=== PATIENT | male | born 1945 | race Caucasian/White ===

== ENCOUNTER 2020-12-21 15:06 | Emergency (ER) | payer MEDICARE, OTHER ==
[~2020-12-21] VITALS: Ht 175.3 cm; Wt 95.3 kg
[2020-12-21 15:15] VITALS: BP 133/81
[2020-12-21 15:48] LABS: BASOPHILS % (AUTO) 0.5 % (0.0-5.0); HEMATOCRIT 46.6 % (42-54); LYMPHOCYTES % (AUTO) 7.6 % (21.0-51.0); MEAN CORPUSCULAR HEMOGLOBIN 30.8 pg (27.0-33.0); MEAN CORPUSCULAR HGB CONC 33.3 g/dL (32.0-36.0); MEAN CORPUSCULAR VOLUME 92.5 fL (79-99); MONOCYTES % (AUTO) 7.9 % (3.0-13.0); NEUTROPHILS % (AUTO) 82.4 % (40.0-77.0); PLATELET COUNT (AUTO) 114 K/uL (130-400); RED BLOOD CELL COUNT(AUTO) 5.04 MIL/uL (4.50-6.20); RED CELL DISTRIBUTION WIDTH 13.8 % (11.0-15.5); WHITE BLOOD COUNT (AUTO) 10.8 K/uL (4.8-10.8)
[2020-12-21 16:00] LABS: CREATININE 1.4 mg/dL (0.5-1.5); POTASSIUM 3.5 mmol/L (3.5-5.1)
[2020-12-21 16:22] VITALS: BP 127/78
== END 2020-12-21 16:53 | disposition home or self-care (01) ==
LOC: EDH 15:06
DX: E86.9 Volume depletion, unspecified (principal); R55 Syncope and collapse; J45.909 Unspecified asthma, uncomplicated; Z88.6 Allergy status to analgesic agent
CPT/HCPCS: 36415; 80048; 84484; 85025; 93005

== ENCOUNTER → 2023-08-23 | Outpatient (CLI) | payer MEDICARE, OTHER | LOC: SHCH 13:35 | PROVIDERS: ATTEND Internal Medicine Cardiovascular Disease | DX: I10 Essential (primary) hypertension (principal); R01.1 Cardiac murmur, unspecified | CPT/HCPCS: 93306 ==

== ENCOUNTER 2023-12-05 14:00 | Inpatient (IN) | payer MEDICARE, OTHER ==
[~2023-12-05] VITALS: Ht 175.3 cm; Wt 91.8 kg
[2023-12-05 15:40] LABS: BASOPHILS # (AUTO) 0.04 K/uL (0.00-0.20); BASOPHILS % (AUTO) 0.5 % (0.0-5.0); EOSINOPHILS # (AUTO) 0.19 K/uL (0.00-0.70); EOSINOPHILS % (AUTO) 2.4 % (0.0-8.0); HEMATOCRIT 44.3 % (42-54); IMMATURE GRANULOCYTE ABSOLUTE 0.06 K/uL (0-1); LYMPHOCYTES # (AUTO) 1.5 K/uL (1.0-4.8); LYMPHOCYTES % (AUTO) 18.6 % (21.0-51.0); MEAN CORPUSCULAR HEMOGLOBIN 30.9 pg (27.0-33.0); MEAN CORPUSCULAR VOLUME 93.7 fL (79-99); MONOCYTES # (AUTO) 0.7 K/uL (0.1-1.0); MONOCYTES % (AUTO) 8.8 % (3.0-13.0); NEUTROPHILS # (AUTO) 5.5 K/uL (1.8-7.7); NEUTROPHILS % (AUTO) 68.9 % (40.0-77.0); PLATELET COUNT (AUTO) 156 K/uL (130-400); RED BLOOD CELL COUNT(AUTO) 4.73 MIL/uL (4.50-6.20)
[2023-12-05 15:47] LABS: APPEARANCE,URINE CLEAR (CLEAR); BILIRUBIN,URINE NEGATIVE (NEGATIVE); COLOR,URINE LIGHT-YELLOW (YELLOW); GLUCOSE, URINE (UA) 50 mg/dL (NEGATIVE); KETONES,URINE NEGATIVE (NEGATIVE); LEUKOCYTE ESTERASE ,URINE NEGATIVE Leu/uL (NEGATIVE); NITRATE,URINE NEGATIVE (NEGATIVE); OCCULT BLOOD,URINE NEGATIVE (NEGATIVE); PH,URINE 6.5 (5.0-8.0); PROTEIN,URINE NEGATIVE (NEGATIVE); UROBILINOGEN,URINE 0.2 mg/dL (0.2-1.0)
[2023-12-05 15:48] LABS: ADD UA MICROSCOPIC YES
[2023-12-05 15:49] LABS: MUCUS,URINE RARE LPF (None Seen); RBC,URINE 0-1 /HPF (0-1); SQUAMOUS EPITHELIAL CELL,UR RARE /HPF (0-2); WBC,URINE 0-1 /HPF (0-1)
[2023-12-05 17:40] VITALS: BP 140/84; PULSE 84; RESP 15; TEMP 98.5
[2023-12-05] MEDS ORDERED: FOLI0.8T22 PO (17:58)
[2023-12-05] MEDS ORDERED: vit d3 PO (17:58)
[2023-12-05] MEDS ORDERED: AMLO-257 PO (17:58)
[2023-12-05] MEDS ORDERED: [UNRECOGNIZED DRUG - OTHER] PO (17:58)
[2023-12-05] MEDS ORDERED: LEVO137C4 PO (17:58)
[2023-12-05] MEDS ORDERED: HYDR12.54 PO (17:58)
[2023-12-05] MEDS ORDERED: ASPI-1026 PO (17:58)
[2023-12-05] MEDS ORDERED: areds PO (17:58)
[2023-12-05] MEDS ORDERED: MELA1TAB16 PO (17:58)
[2023-12-05] MEDS ORDERED: FENO145T26 PO (17:58)
[2023-12-05] MEDS ORDERED: ZINC50TA64 PO (17:58)
[2023-12-05] MEDS ORDERED: HTP PO (17:58)
[2023-12-05] MEDS ORDERED: DAPA10TA PO (17:58)
[2023-12-05] MEDS ORDERED: ACET-2743 PO (17:58)
[2023-12-05] MEDS ORDERED: VALS160T29 PO (17:58)
[2023-12-05] MEDS ORDERED: SEMA1PEN3 SQ (17:58)
[2023-12-05] MEDS ORDERED: coq10 PO (17:58)
[2023-12-11] VITALS (27 sets, daily range): BP systolic 112–142; BP diastolic 65–83; PULSE 76–92; RESP 16–18; TEMP 97.1–98.1; O2SAT 96–97
[2023-12-11] MEDS: VANCOMYCIN 1G VIAL TP ONE
[2023-12-11] MEDS: morPHINE PF 100MG/10ML AMP IV ONE
[2023-12-11] MEDS: acetaMINOPHEN 1,000 MG/100 ML VIAL IV ONE (07:08)
[2023-12-11] MEDS: FAMOTIDINE 20MG VIAL IV ONE (07:08)
[2023-12-11] MEDS ORDERED: ketaMINE 50MG/ML SYRINGE 50 MG/ML DISP.SYRIN ONE (07:10)
[2023-12-11] MEDS ORDERED: ROPivacaine 0.5% 5MG/ML 30ML ONE (07:10)
[2023-12-11] MEDS ORDERED: VANCOMYCIN 1G/250ML KIT 250 ML IV ONE (07:14)
[2023-12-11] MEDS ORDERED: LIDOCAINE PF 100MG/5ML (2%) SYRINGE 5ML ONE (07:20)
[2023-12-11] MEDS ORDERED: rocuRONium bROMide 10MG/1ML 5ML VL ONE (07:20)
[2023-12-11] MEDS ORDERED: FENTanyl CITRate PF 50 MCG/1 ML 2ML VIAL ONE (07:20)
[2023-12-11] MEDS ORDERED: proPOFol 10 MG/ML 20ML VIAL IV ONE (07:20)
[2023-12-11] MEDS: 0.9%NACL 1000ML 1,000 ML IV ONE (07:34)
[2023-12-11] MEDS: ceFAZolin SODIUM 2 GM VIAL ONE (07:34)
[2023-12-11] MEDS ORDERED: dexaMETHasone SOD PHOSPHATE 10MG/ML 1ML VIAL ONE (08:00)
[2023-12-11] MEDS ORDERED: ondanSETRON 4MG INJ ONE (08:00)
[2023-12-11] MEDS: TRANEXAMIC ACID 1000MG/10ML ONE ×2 (08:05→11:12)
[2023-12-11] MEDS: ceFAZolin SODIUM 1 GM VIAL ONE (08:10)
[2023-12-11] MEDS ORDERED: GLYCOPYRROLATE 0.2 MG/ML 5 ML VIAL ONE (09:54)
[2023-12-11] MEDS ORDERED: NEOSTIGMINE METHYLSULFATE 1MG/ML IV ONE (09:54)
[2023-12-11] MEDS ORDERED: FERROUS FUMARATE 324 MG TABLET PO PRN (10:30)
[2023-12-11] MEDS ORDERED: ondanSETRON 4MG INJ IVP PRN (10:30)
[2023-12-11] MEDS ORDERED: traMADol HCL 50 MG TABLET PO PRN (10:30)
[2023-12-11] MEDS ORDERED: DiphenhydrAMINE HCL 50 MG/ML VIAL IVP PRN (10:30)
[2023-12-11] MEDS ORDERED: PoTASSium chloRIDE 20MEQ/100ML 100 ML IV PRN (10:30)
[2023-12-11] MEDS: MEPERIDINE-PF 25 MG/ML SYG ONE ×2 (10:44→10:52)
[2023-12-11] MEDS: INSULIN humuLIN R 100 UNIT/ML 3ML SQ SCH (11:30)
[2023-12-11 13:21] LABS: INR 1.07 (0.85-1.15); PROTHROMBIN TIME 11.5 SEC (9.6-11.6)
[2023-12-11 13:22] LABS: PARTIAL THROMBOPLASTIN TIME 24.9 SEC (26.3-35.5)
[2023-12-11] MEDS: HYDROcodone/APAP 5/325 1 TAB TABLET PO PRN (14:06)
[2023-12-11] MEDS: 0.9%NACL 1000ML 1,000 ML IV SCH (16:05)
[2023-12-11] MEDS: ceFAZolin SODIUM 2 GM VIAL IVPB SCH (16:05)
[2023-12-11] MEDS: FAMOTIDINE 20MG TAB PO SCH (20:11)
[2023-12-11] MEDS: amLODIPine 5 MG TAB PO SCH (20:11)
[2023-12-11] MEDS: ASPIRIN 81 MG EC TAB PO SCH (20:11)
[2023-12-11] MEDS: VALSARTAN 160 MG PO SCH (20:48)
[2023-12-11] MEDS: (Melatonin/Pyridoxine (Melatonin 5 mg Tablet) 1 EACH) PO SCH (20:48)
[2023-12-11] MEDS: (Zinc Amino Acid Chelate (Zinc) 50 MG) PO SCH (20:49)
[2023-12-12] VITALS (7 sets, daily range): BP systolic 98–144; BP diastolic 58–82; PULSE 76–105; RESP 16–20; TEMP 97.9–98.6; O2SAT 92–100
[2023-12-12 05:28] LABS: HEMATOCRIT 38.5 % (42-54); MEAN CORPUSCULAR HEMOGLOBIN 30.6 pg (27.0-33.0); MEAN CORPUSCULAR HGB CONC 32.7 g/dL (32.0-36.0); MEAN CORPUSCULAR VOLUME 93.4 fL (79-99); RED BLOOD CELL COUNT(AUTO) 4.12 MIL/uL (4.50-6.20); RED CELL DISTRIBUTION WIDTH 12.7 % (11.0-15.5); WHITE BLOOD COUNT (AUTO) 12.6 K/uL (4.8-10.8)
[2023-12-12 05:37] LABS: CREATININE 1.2 mg/dL (0.5-1.3); POTASSIUM 3.8 mmol/L (3.5-5.1)
[2023-12-12] MEDS: levoTHYROxine 25 MCG TABLET PO SCH (05:47)
[2023-12-12] MEDS: levoTHYROxine 112 MCG TABLET PO SCH (05:47)
[2023-12-12] MEDS: tamSULOsin HCL 0.4 MG CAP.ER.24H PO SCH (09:00)
[2023-12-12] MEDS: polyETHYLene GLYCol 3350 17 GM POWD.PACK PO SCH (09:00)
[2023-12-12] MEDS: (Dapagliflozin Propanediol (Farxiga) 10 MG) PO SCH (09:00)
[2023-12-12] MEDS ORDERED: LEVOTHYROXINE SODIUM 137 MCG PO SCH (09:00)
[2023-12-12] MEDS: Vitamin B Complex/Vit C/Folic Acid PO SCH (09:00)
[2023-12-12] MEDS: VIT D3 5000 UNIT PO SCH (09:00)
[2023-12-12] MEDS: hydroCHLOROthiazide 25 MG TABLET PO SCH (10:53)
[2023-12-12] MEDS: FENOFIBRATE NANOCRYSTALLIZED 145 MG TAB PO SCH (10:53)
[2023-12-12] MEDS: TEMAZepam 15 MG CAPSULE PO PRN (23:46)
[2023-12-13] VITALS (15 sets, daily range): BP systolic 109–156; BP diastolic 56–97; PULSE 90–120; RESP 16–22; TEMP 97.4–100; O2SAT 93–98
[2023-12-13 04:16] LABS: BASOPHILS # (AUTO) 0.02 K/uL (0.00-0.20); BASOPHILS % (AUTO) 0.2 % (0.0-5.0); EOSINOPHILS % (AUTO) 0.9 % (0.0-8.0); HEMATOCRIT 36.5 % (42-54); IMMATURE GRANULOCYTE ABSOLUTE 0.06 K/uL (0-1); LYMPHOCYTES # (AUTO) 1.2 K/uL (1.0-4.8); LYMPHOCYTES % (AUTO) 10.6 % (21.0-51.0); MEAN CORPUSCULAR HEMOGLOBIN 30.7 pg (27.0-33.0); MEAN CORPUSCULAR HGB CONC 33.2 g/dL (32.0-36.0); MEAN CORPUSCULAR VOLUME 92.6 fL (79-99); MONOCYTES # (AUTO) 1.6 K/uL (0.1-1.0); MONOCYTES % (AUTO) 13.5 % (3.0-13.0); NEUTROPHILS # (AUTO) 8.6 K/uL (1.8-7.7); NEUTROPHILS % (AUTO) 74.3 % (40.0-77.0); PLATELET COUNT (AUTO) 127 K/uL (130-400); RED BLOOD CELL COUNT(AUTO) 3.94 MIL/uL (4.50-6.20); WHITE BLOOD COUNT (AUTO) 11.6 K/uL (4.8-10.8)
[2023-12-13 04:54] LABS: ALBUMIN 2.6 g/dL (3.5-5.0); BILIRUBIN,TOTAL 0.8 mg/dL (0.2-1.0); CREATININE 1.3 mg/dL (0.5-1.3); MAGNESIUM 1.8 mg/dL (1.80-2.40); POTASSIUM 3.5 mmol/L (3.5-5.1); THYROID STIMULATING HORMONE 2.68 uIU/mL (0.36-3.74); TOTAL PROTEIN, SERUM 5.8 g/dL (6.0-8.3)
[2023-12-13 05:05] LABS: B-TYPE NATRIURETIC PEPTIDE 156 pg/mL (0-100)
[2023-12-13] MEDS: MAGNESIUM 2GM PREMIX 50ML 50 ML IV PRN (05:40)
[2023-12-13] MEDS: PoTASSium chloRIDE 20MEQ ER 20 MEQ ERTAB PO PRN (05:40)
[2023-12-13] MEDS: PoTASSium chl 10% ELIXIR 20MEQ 20 MEQ/15 ML UDCUP PO PRN (08:56)
[2023-12-13] MEDS: metoPROLOL tartRATE 1 MG/ML 5ML VIAL IV ONE (22:38)
[2023-12-14] VITALS (9 sets, daily range): BP systolic 114–130; BP diastolic 62–77; PULSE 86–98; RESP 19–22; TEMP 98–99; O2SAT 96
[2023-12-14] MEDS: BisaCODYL 10 MG SUPP.RECT RC PRN (06:05)
[2023-12-14] MEDS: BisaCODYL 10 MG SUPP.RECT RC ONE (06:10)
[2023-12-14] MEDS ORDERED: AEC81 PO (09:02)
[2023-12-14] MEDS ORDERED: HYDR-4060 PO (09:02)
== END 2023-12-14 16:10 | DRG 470 ==
LOC: DAHIP 12-11 06:18 → OBSVTOIN 12-11 06:18 → 4BH 12-11 11:30
PROVIDERS: ADMIT Orthopaedic Surgery; ATTEND Orthopaedic Surgery
PROC: 0SRD0J9 Replacement of Left Knee Joint with Synthetic Substitute, Cemented, Open Approach (ICD-10-PCS; principal; 2023-12-11 07:30)
DX: M17.12 Unilateral primary osteoarthritis, left knee (principal); E03.9 Hypothyroidism, unspecified; E78.5 Hyperlipidemia, unspecified; I12.9 Hypertensive chronic kidney disease with stage 1 through stage 4 chronic kidney disease, or unspecified chronic kidney disease; E11.22 Type 2 diabetes mellitus with diabetic chronic kidney disease; N18.30 Chronic kidney disease, stage 3 unspecified; I49.1 Atrial premature depolarization; Z79.4 Long term (current) use of insulin; Z79.899 Other long term (current) drug therapy
CPT/HCPCS: 36415; 71045; 72170; 73070; 78582; 80048; 80053; 81001; 82550; 82948; 83735; 83880; 84443; 84484; 85025; 85027; 85378; 85610; 85730; 87086; 87641; 88304; 88311; 93005; A9540; A9558; C1776; G0378; J0690; J1100; J2001; J2175; J2274; J2405; J2704; J2710; J2795; J3010; J3370; J3475; J3490; J7030; J7120; A4215; A4221; A4222; A4223; A4600; A4649; A4663; A4930; A5120; A9272; C1713

== ENCOUNTER 2024-03-13 07:26 | Day surgery (SDC) | payer MEDICARE, OTHER ==
[2024-03-11 09:39] LABS: BASOPHILS # (AUTO) 0.03 K/uL (0.00-0.20); BASOPHILS % (AUTO) 0.4 % (0.0-5.0); EOSINOPHILS % (AUTO) 2.5 % (0.0-8.0); HEMATOCRIT 46.2 % (42-54); IMMATURE GRANULOCYTE ABSOLUTE 0.06 K/uL (0-1); LYMPHOCYTES # (AUTO) 1.4 K/uL (1.0-4.8); LYMPHOCYTES % (AUTO) 17.9 % (21.0-51.0); MEAN CORPUSCULAR HEMOGLOBIN 30.1 pg (27.0-33.0); MEAN CORPUSCULAR VOLUME 94.1 fL (79-99); MONOCYTES # (AUTO) 0.7 K/uL (0.1-1.0); MONOCYTES % (AUTO) 8.7 % (3.0-13.0); NEUTROPHILS # (AUTO) 5.5 K/uL (1.8-7.7); NEUTROPHILS % (AUTO) 69.7 % (40.0-77.0); PLATELET COUNT (AUTO) 146 K/uL (130-400); RED BLOOD CELL COUNT(AUTO) 4.91 MIL/uL (4.50-6.20); RED CELL DISTRIBUTION WIDTH 14.8 % (11.0-15.5); WHITE BLOOD COUNT (AUTO) 7.9 K/uL (4.8-10.8)
[2024-03-11 09:56] LABS: CREATININE 1.5 mg/dL (0.5-1.3); POTASSIUM 3.9 mmol/L (3.5-5.1)
[2024-03-11 10:00] LABS: INR 1.06 (0.85-1.15); PROTHROMBIN TIME 11.4 SEC (9.6-11.6)
[2024-03-11 10:01] LABS: PARTIAL THROMBOPLASTIN TIME 27.1 SEC (26.3-35.5)
[2024-03-11 10:19] VITALS: BP 125/71; PULSE 85; RESP 18; TEMP 97.4
--- NOTE | 2024-03-11 13:29 | NUR ---
verified verified with dr steel if ok to take multaq morning of procedure. received orders to hold morning of procedure. pt notified
[~2024-03-13] VITALS: Ht 175.3 cm; Wt 91.3 kg
[2024-03-13] VITALS (7 sets, daily range): BP systolic 110–123; BP diastolic 73–80; PULSE 74–83; RESP 13–18; TEMP 97.4–97.6
[~2024-03-13 07:26] MED LIST: ACET-3859 PO; AMLO-257 PO; APIX5TAB PO; DAPA10TA PO; DRON400T7 PO; FOLI0.8T22 PO; HTP PO; HYDR12.54 PO; LEVO137C4 PO; MELA1TAB16 PO; POTASSIUM PO; SEMA1PEN3 SQ; TIRZ5PEN SQ; ZINC50TA64 PO; [UNRECOGNIZED DRUG - OTHER] PO; areds PO; coq10 PO; vit d3 PO
[2024-03-13] MEDS ORDERED: LIDOCAINE HCL 400MG/20ML VIAL ONE (10:14)
[2024-03-13] MEDS ORDERED: HEParin-NS 1,000 UNIT/500 ML 500 ML IV ONE (10:14)
[2024-03-13] MEDS ORDERED: HEParin 10,000 UNIT/10ML (1,000 UNIT/ML) VIAL ONE (10:14)
[2024-03-13] MEDS ORDERED: MEPERIDINE-PF 25 MG/ML SYG ONE ×3 (10:40→11:12)
[2024-03-13] MEDS ORDERED: MIDAZOLAM HCL 1 MG/ML 2ML VIAL ONE ×3 (10:40→11:12)
[2024-03-13] MEDS ORDERED: 0.9%NACL 1000ML 1,000 ML IV SCH (11:00)
[2024-03-13] MEDS: 0.9%NACL 1000ML 1,000 ML IV ONE (11:03)
[2024-03-13] MEDS ORDERED: APIX5TAB PO (16:04)
== END 2024-03-13 14:43 | disposition home or self-care (01) ==
LOC: DAH 07:26
PROVIDERS: ATTEND Internal Medicine Cardiovascular Disease
DX: I48.3 Typical atrial flutter (principal); E78.5 Hyperlipidemia, unspecified; J45.909 Unspecified asthma, uncomplicated; E11.22 Type 2 diabetes mellitus with diabetic chronic kidney disease; I12.9 Hypertensive chronic kidney disease with stage 1 through stage 4 chronic kidney disease, or unspecified chronic kidney disease; N18.30 Chronic kidney disease, stage 3 unspecified; M19.90 Unspecified osteoarthritis, unspecified site; Z82.49 Family history of ischemic heart disease and other diseases of the circulatory system; Z79.01 Long term (current) use of anticoagulants; Z98.890 Other specified postprocedural states; Z79.899 Other long term (current) drug therapy
CPT/HCPCS: 80048; 85025; 85610; 85730; 36415; 93653; 82948 ×2; C1894 ×2; C1732 ×2; A4649 ×2; C1760 ×2; J3490; J7030; J1644 ×2; J2250 ×3; J2175 ×3; A4215; A4222; A4221; A4663; A4216; A4606; A4223 ×3; 99156; 99157